=== PATIENT | female | born 1990 | race Two or more races ===

== ENCOUNTER 2024-01-12 20:29 | Observation (INO) | payer MEDICAID, SELFPAY ==
[2024-01-12 20:30] VITALS: BMI 46.8
[2024-01-12 20:49] VITALS: BP 137/89; PULSE 91; RESP 18; TEMP 37.1; O2SAT 97
--- NOTE | 2024-01-12 20:57 | XR_ITS ---
Examination: CT abdomen and pelvis without contrast. Coronal 3-D reconstructions. Sagittal 2-D reconstructions. Date and time of exam: January 12, 2024 1046 hrs. Indications: Lower abdominal pain with nausea beginning 2 days ago CTDI: vol (mGy): 15.01 DLP: (mGycm): 974 Technique: Axial images of the abdomen have been obtained, 3 mm slice thickness Intravenous contrast material has not been administered. Low dose protocols were performed. One or more of the following dose reduction techniques were used; automated exposure control, adjustment of the mA and/or KV according to patient size, use of iterative reconstruction technique. Findings: No focal liver or splenic lesions No gallstones No pancreatic or adrenal mass No renal or ureteral calculi, no hydronephrosis Aorta normal size Appendix is fluid-filled with minimal periappendiceal inflammatory change No bowel obstruction or diverticulitis 15 mm fat-containing umbilical hernia Trace free fluid in the pelvis No pelvic mass Bladder intact Impression: Appendix is fluid-filled with minimal periappendiceal inflammatory change, consider early acute appendicitis, the appearance should be clinically correlated
--- NOTE | 2024-01-12 20:57 | PD.EDRME ---
Rapid Medical Screening Exam RME Arrival date/time: 01/12/24 20:29 33-year-old female with past medical history of section presents emergency department complaining of diffuse abdominal pain that migrates to left lower quadrant with nausea. Chief Complaint: Abdominal Pain Time Seen by Provider: 01/12/24 20:56 Vital signs: Vital Signs Temperature 98.8 F 01/12/24 20:49 Pulse Rate 91 01/12/24 20:49 Respiratory Rate 18 01/12/24 20:49 Blood Pressure 137/89 H 01/12/24 20:49 Pulse Oximetry (%) 97 01/12/24 20:49 Oxygen Delivery Method Room Air 01/12/24 20:49 Vital signs reviewed by provider: Yes
[2024-01-12] MEDS: MG HYD/AL HYD/SIME (Maalox Reg) SUSP 30 ML UDC PO (21:15)
[2024-01-12 21:16] LABS: Collection Type, Urine Clean Catch
[2024-01-12 21:21] LABS: Bilirubin,Urine Negative (Negative); Blood,Urine 1+ (Negative); Clarity,Urine Clear (Clear/Hazy); Color,Urine Lt-Yellow (Lt Yel-Yel); Culture Indicated,Urine Not Indicated; Glucose, Urine Negative (Negative); Ketones,Urine Negative (Negative); Leukocyte Esterase,Urine Negative (Negative); Nitrite,Urine Negative (Negative); Protein,Urine 1+ (Neg - Trace); RBC,Urine 5 /hpf (0-3); Squamous Epithelial Cell,Urine 3 /hpf (0-5); Urobilinogen,Urine Negative mg/dL (0.0-1.0); WBC,Urine < 1 /hpf (0-5)
[2024-01-12 21:22] LABS: Basophils % (Auto) 0 % (0-2.5); Eosinophils # (Auto) 0.2 Thou/mm3 (0.0-0.5); Eosinophils % (Auto) 2 % (0-10); Hematocrit 38.4 % (36.0-46.0); Hemoglobin 12.5 g/dL (12.0-16.0); Immature Granulocytes % (Auto) 1 % (0-0); Immature Granulocytes Auto 0.05 Thou/mm3 (0.00-0.00); Lymphocytes # (Auto) 1.8 Thou/mm3 (1.0-4.8); Lymphocytes % (Auto) 17 % (10-50); Mean Corpuscular HGB Conc 32.6 g/dl (31.0-37.0); Mean Corpuscular Hemoglobin 24.1 pg (25.0-35.0); Mean Corpuscular Volume 74 fL (80-100); Monocytes # (Auto) 0.4 Thou/mm3 (0.0-0.8); Monocytes % (Auto) 4 % (0-12); Neutrophils # (Auto) 7.7 Thou/mm3 (1.8-7.7); Neutrophils % (Auto) 76 % (37-80); Nucleated Red Blood Cell % 0 /100 WBC (0); Platelet Count 309 Thou/mm3 (140-440); RDW Standard Deviation 37.8 fL (36.4-46.3); Red Blood Count 5.19 Miln/mm3 (4.00-5.20); White Blood Count 10.2 Thou/mm3 (3.6-11.0)
[2024-01-12 21:42] LABS: Alanine Aminotransferase 16 U/L (10-49); Albumin, Serum 4.7 gm/dL (3.5-5.0); Albumin/Globulin Ratio 1.6 (1.2-2.2); Alkaline Phosphatase 88 U/L (46-116); Anion Gap 6 (7-16); Aspartate Amino Transferase 12 U/L (0-34); BUN/Creatinine Ratio 17 Ratio (12-20); Bilirubin,Total 0.3 mg/dL (0.3-1.2); Blood Urea Nitrogen 10 mg/dL (9-23); Calcium 10.3 mg/dL (8.3-10.6); Calcium (Corrected) 10.3 mg/dL (8.5-10.1); Carbon Dioxide 29.5 mMol/L (20.0-31.0); Chloride 103 mMol/L (98-107); Creatinine (Component) 0.6 mg/dL (0.6-1.3); Estimated Creatinine Clearance 151.9 mL/min (>60); Glucose 113 mg/dL (74-106); Lipase 45 U/L (12-53); Osmolality,Calculated 275 (275-295); Potassium 3.9 mMol/L (3.4-5.1); Sodium 138 mMol/L (136-145); Total Protein 7.7 gm/dL (5.7-8.2); eGFR > 60 See Note
[2024-01-12 22:11] LABS: HCG,Qualitative Serum Negative
[2024-01-12 23:18] VITALS: BP 141/87; PULSE 85; RESP 18; TEMP 37.1; O2SAT 100
[2024-01-13] VITALS (9 sets, daily range): BP systolic 106–128; BP diastolic 63–91; PULSE 79–90; RESP 16–20; TEMP 36.6–37.2; O2SAT 95–100; BMI 43.5
--- NOTE | 2024-01-13 00:18 | PD.EDABDPN ---
ED Abdominal Pain RME/HPI General Chief Complaint: Abdominal Pain Stated complaint: LOWER ABD PAIN Time seen by provider: 01/12/24 20:56 Arrival date/time: 01/12/24 20:29 Source: patient Mode of arrival: ambulatory Limitations: no limitations RME / HPI RME / HPI narrative: 01/12/24 20:29 33-year-old female with past medical history of section presents emergency department complaining of diffuse abdominal pain that migrates to left lower quadrant with nausea. DR CASEY MAIN ED EVALUATION: 33-year-old female patient complaining of a migratory abdominal pain started may be right lower quadrant migrated to mid abdomen and then to left upper abdomen and across low back. Complains of nausea no vomiting. Normal bowel movement yesterday. No diarrhea or constipation. Related Data Home Medications ?Medication ?Instructions ?Recorded ?Confirmed prenat.vits,zulay,oha-fcpr-nukes 1 tab PO QDAY 07/29/20 10/16/20 Previous Rx's ?Medication ?Instructions ?Recorded hydrocodone 5 mg-acetaminophen 325 1 tab PO Q8H PRN pain #7 tabs 10/18/20 mg tablet ibuprofen 400 mg tablet 400 mg PO Q6H Pain #14 tabs 10/18/20 ibuprofen 600 mg tablet 600 mg PO TID PRN pain #30 tabs 04/18/22 albuterol sulfate 90 mcg/actuation 2 puff inhalation Q6H PRN 04/25/22 aerosol inhaler (Ventolin HFA) shortness of breath or wheezing #8.5 grams oxycodone-acetaminophen 5 mg-325 1 tab PO Q6H PRN pain #10 tabs 01/15/24 mg tablet (Percocet) Allergies Allergy/AdvReac Type Severity Reaction Status Date / Time No Known Allergies Allergy Verified 01/12/24 20:31 Review of Systems Review of Systems Systems Reviewed: All systems reviewed, normal except as documented Past Medical History Past Medical History NEUROLOGIC: Negative Neurological Disorders or Seizures CARDIAC: Negative Cardiac Disorders or Congestive Heart Failure RESPIRATORY: Negative Chronic Obstructive Pulmonary Disease (COPD) GASTROINTESTINAL: Negative Gastrointestinal Disorders, Hepatitis or Colorectal Cancer GENITOURINARY: Negative Genitourinary Disorders or Renal Disease REPRODUCTIVE: Positive Previous Pregnancies (x1); Negative Breast Cancer MUSCULOSKELETAL: Negative Musculoskeletal Disorders or Bone Cancer ENDOCRINE: Positive Endocrine Disorders; Negative Diabetes Mellitus Type 1 or Diabetes Mellitus Type 2 HEMATOLOGIC: Negative Blood Disorders OTHER HISTORY: Positive Hospitalization (x1 delivery); Negative Autoimmune Disease, Down Syndrome, Developmental Delay, Shingles, Falls, Blood Transfusions, Blood Transfusion Reaction, Anesthesia Reactions, Organ Transplant, Chemotherapy, Radiation Therapy, Hyperbaric Therapy, MRSA, VRSA, Vancomycin-Resistant Enterococci, Human Immunodeficiency Virus (HIV), Chicken Pox, Measles, Mumps, Rubella ([place] Measles), Pertussis, Clostridium Difficile, Cancer, Breast Cancer, Cervical Cancer, Colorectal Cancer, Lung Cancer or Ovarian Cancer Family History FAMILY HISTORY: Positive Family Cancer (mat gpa); Negative Family Psychiatric Problems, Family Respiratory Disorders, Family Cardiac Disorders, Family Gastrointestinal Problems, Family Surgery or Family Anesthesia Reaction Surgical History SURGICAL: Negative Section or Organ Transplant Social History SMOKING STATUS: Never smoker ED Exam Narrative Physical exam: GENERAL APPEARANCE: alert and oriented x 4, well-developed, well-nourished, no acute distress VITALS: All vitals were reviewed and the pulse ox is % on room air, which is normal according to my interpretation. HEENT: Normocephalic, atraumatic; pupils equal, round, reactive to light; EOMI; mucous membranes pink, moist; oropharynx clear NECK: Supple LUNGS: CTABL; no wheezes, no rales, no rhonchi HEART: Regular rate, regular rhythm; normal S1, S2; no murmurs ABDOMEN: Initial examination: Obese, active bowel sounds, mild diffuse subjective tenderness, no rebound no guarding. Reexamination: Obese, active bowel sounds, right lower quadrant tenderness with involuntary guarding BACK: no CVA tenderness EXTREMITIES: atraumatic; no edema NEUROLOGIC: awake; alert and oriented x4; cranial nerves II-XII grossly intact; no focal sensory or motor deficits PSYCHIATRIC: appropriate mood and affect SKIN: warm, dry, normal color; no rashes General Limitations: Present no limitations Course Course Course Narrative: Initial examination: Obese, active bowel sounds, mild diffuse subjective tenderness, no rebound no guarding. Treated for abdominal pain. Symptoms improved. Reexamination: Obese, active bowel sounds, right lower quadrant tenderness with involuntary guarding Discussed with Dr. Jarquin for consult Dx: Acute appendicitis Quality Measures none Orders Category Date Time Status Bedside COVID-19 Antigen Test NOW Care 01/13/24 02:15 Completed COVID-19 Screening Questionnaire NOW Care 01/13/24 01:51 Completed Decision to Admit X1 Care 01/13/24 01:51 Completed NPO NOW Care 01/13/24 01:[address] abdomen pelvis wo con Stat Exams 01/12/24 20:57 Completed CBC Stat Lab 01/12/24 21:12 Completed CMP [Comprehensive Metabolic Panel] Stat Lab 01/12/24 21:12 Completed HCG,Qualitative Serum Stat Lab 01/12/24 21:12 Completed Lipase Stat Lab 01/12/24 21:12 Completed Urinalysis, C/S if Indicated Stat Lab 01/12/24 21:03 Completed Acetaminophen Tab [Tylenol Tab] Med 01/13/24 01:52 Discontinued 650 mg PO Q6HR PRN HYDROcodone*/APAP 5/325 [[place] 5/325] Med 01/13/24 00:10 Discontinued 1 tab PO X1 ONE Ketorolac Inj [Toradol Inj] Med 01/13/24 01:53 Discontinued 15 mg IVP Q6HR PRN Ketorolac Inj [Toradol Inj] Med 01/13/24 00:10 Discontinued 30 mg IM X1 ONE Morphine Inj [Morphine Sulf Inj] Med 01/13/24 01:54 Discontinued 4 mg IVP Q4HR PRN Ondansetron Inj [Zofran Inj] Med 01/13/24 01:57 Discontinued 4 mg IV Q6HR PRN Ondansetron Odt [Zofran Odt] Med 01/13/24 00:10 Discontinued 4 mg PO X1 ONE Piper/Tazo Inj [Zosyn Inj] 3.375 gm Med 01/13/24 01:55 Discontinued Sodium Chloride 0.9% (P) [Ns 0.9% (P)] 50 ml IV X1 Sodium Chloride 0.9% 1000 ml [Ns] 1,000 ml Med 01/13/24 02:00 Discontinued IV 125 mls/hr mg Hyd/Al Hyd/Arnulfo Susp [Maalox Susp] Med 01/12/24 20:57 Discontinued 30 ml PO X1 ONE Vital Signs Vital signs: Vital Signs Temperature 98.8 F 01/12/24 20:49 Pulse Rate 91 01/12/24 20:49 Respiratory Rate 18 01/12/24 20:49 Blood Pressure 137/89 H 01/12/24 20:49 Pulse Oximetry (%) 97 01/12/24 20:49 Oxygen Delivery Method Room Air 01/12/24 20:49 Abdominal Pain MDM MDM Narrative MDM Narrative:: Scribe Attestation: I, Adriannerogelio Stephania, am scribing for and in the presence of Dr. Casey. Provider Notation: Although this document has been carefully reviewed, there may still be some phonetic and other typographical errors. These errors are purely grammatical due to imperfections in the software program and should not be construed in any way to compromise the substance of the patient's medical care during this visit. Patient data External records reviewed:: [facility] previous records Clinical information provided by:: patient Social determinants that could affect healthcare access:: none Patient has the following chronic illnesses:: n/a How is presenting disease/condition affected by chronic disease/condition?: no chronic disease Evaluation data The following diagnostics were reviewed and interpreted by me:: lab results and radiology exam(s) Lab and/or radiology exams considered but not ordered:: n/a Interpretation Summary: I personally reviewed the radiology data and agree with the radiologist's interpretation. Examination: CT abdomen and pelvis without contrast. Coronal 3-D reconstructions. Sagittal 2-D reconstructions. Date and time of exam: January 12, 2024 1046 hrs. Indications: Lower abdominal pain with nausea beginning 2 days ago CTDI: vol (mGy): 15.01 DLP: (mGycm): 974 Technique: Axial images of the abdomen have been obtained, 3 mm slice thickness Intravenous contrast material has not been administered. Low dose protocols were performed. One or more of the following dose reduction techniques were used; automated exposure control, adjustment of the mA and/or KV according to patient size, use of iterative reconstruction technique. Findings: No focal liver or splenic lesions No gallstones No pancreatic or adrenal mass No renal or ureteral calculi, no hydronephrosis Aorta normal size Appendix is fluid-filled with minimal periappendiceal inflammatory change No bowel obstruction or diverticulitis 15 mm fat-containing umbilical hernia Trace free fluid in the pelvis No pelvic mass Bladder intact Impression: Appendix is fluid-filled with minimal periappendiceal inflammatory change, consider early acute appendicitis, the appearance should be clinically correlated Dictated By: Job Abdullahi MD Medications / Prescriptions Medications or Prescriptions considered but not ordered:: n/a Medication administrations:: Medication Administration History Discontinued Medications Acetaminophen (Acetaminophen 325 Mg Tablet) 650 mg PO Q6HR PRN PRN Reason: PAIN SCALE 1-3 (mild Stop: 02/12/24 01:51 Last Admin: 01/14/24 08:05 Dose: 650 mg Documented By: SA Hydrocodone Bitart/Acetaminophen (Hydrocodone/Apap 5/325 Tablet) 1 tab PO X1 ONE Stop: 01/13/24 00:11 Last Admin: 01/13/24 00:38 Dose: 1 tab Documented By: CB Hydrocodone Bitart/Acetaminophen (Hydrocodone/Apap 5/325 Tablet) 1 tab PO Q6H PRN; Protocol PRN Reason: PAIN SCALE 7-10 (Severe Stop: 01/18/24 08:59 Last Admin: 01/15/24 05:46 Dose: 1 tab Documented By: Admin: 01/14/24 18:42 Dose: 1 tab Documented By: SN Al Hydrox/Mg Hydrox/Simethicone (Mg Hyd/Al Hyd/Arnulfo (Maalox Reg) Susp 30 Ml Udc) 30 ml PO X1 ONE Stop: 01/12/24 20:58 Last Admin: 01/12/24 21:15 Dose: 30 ml Documented By: CVL Albuterol (Albuterol Rt 2.5 Mg/3 Ml Nebu) 2.5 mg INH X1 ONE Stop: 01/14/24 14:41 Albuterol (Albuterol Rt 2.5 Mg/3 Ml Nebu) 2.5 mg INH X1 ONE Stop: 01/14/24 14:42 Last Admin: 01/14/24 14:46 Dose: 2.5 mg Documented By: DI Bupivacaine HCl (Bupivacaine Mpf 0.5% 30 Ml Vial) Confirm Administered Dose 30 ml .ROUTE .STK-MED ONE Stop: 01/14/24 11:34 Fentanyl Citrate (Fentanyl Cit Inj 50 Mcg/Ml Amp 2ml) Confirm Administered Dose 100 mcg .ROUTE .STK-MED ONE Stop: 01/14/24 11:53 Fentanyl Citrate (Fentanyl Cit Inj 50 Mcg/Ml Amp 2ml) Confirm Administered Dose 100 mcg .ROUTE .STK-MED ONE Stop: 01/14/24 11:53 Glycopyrrolate (Glycopyrrolate Inj 0.2 Mg/Ml Vial 5 Ml) Confirm Administered Dose 1 mg .ROUTE .STK-MED ONE Stop: 01/14/24 11:54 Hydromorphone HCl (Hydromorphone Inj 2 Mg/Ml Vial) Confirm Administered Dose 2 mg .ROUTE .STK-MED ONE Stop: 01/14/24 11:53 Hydromorphone HCl (Hydromorphone Inj 2 Mg/Ml Vial) 0.4 mg IVP Q15MIN PRN PRN Reason: PAIN Stop: 01/14/24 15:57 Piperacillin Sod/Tazobactam (Sod 3.375 gm/ Sodium Chloride) 50 mls @ 100 mls/hr IV X1 ONE Stop: 01/13/24 02:24 Last Infusion: 01/13/24 05:12 Dose: Infused Documented By: Admin: 01/13/24 02:06 Dose: 100 mls/hr Documented By: POLLO Sodium Chloride (Ns) 1,000 mls @ 125 mls/hr IV .Q8H ONE Stop: 01/13/24 09:59 Last Infusion: 01/13/24 10:20 Dose: Infused Documented By: JORGE LUIS Admin: 01/13/24 02:05 Dose: 125 mls/hr Documented By: POLLO Sodium Chloride (Ns) 1,000 mls @ 125 mls/hr IV .Q8H GIUSEPPE Stop: 01/14/24 15:44 Last Admin: 01/14/24 08:04 Dose: 125 mls/hr Documented By: Infusion: 01/14/24 08:04 Dose: Infused Documented By: Admin: 01/14/24 00:11 Dose: 125 mls/hr Documented By: Infusion: 01/14/24 00:11 Dose: Infused Documented By: Admin: 01/13/24 16:11 Dose: 125 mls/hr Documented By: JORGE LUIS Sodium Chloride (Ns) 1,000 mls @ 125 mls/hr IV .Q8H ONE Stop: 01/14/24 08:04 Last Admin: 01/14/24 00:12 Dose: Not Given Documented By: MORIAH Non-Admin Reason: Duplicate Medication on eMAR Piperacillin/Tazobactam/Dextrose (Zosyn) 3.375 gm in 50 mls @ 100 mls/hr IV Q8HR [facility] Stop: 01/21/24 10:08 Piperacillin Sod/Tazobactam (Sod 3.375 gm/ Sodium Chloride) 100 mls @ 200 mls/hr IV X1 ONE Stop: 01/14/24 11:29 Last Admin: 01/14/24 10:56 Dose: 200 mls/hr Documented By: Piperacillin Sod/Tazobactam (Sod 3.375 gm/ Sodium Chloride) 100 mls @ 25 mls/hr IV Q8HR GIUSEPPE; Protocol Stop: 01/21/24 10:08 Last Admin: 01/15/24 05:47 Dose: 25 mls/hr Documented By: JOHN PAUL Infusion: 01/15/24 01:21 Dose: Infused Documented By: JOHN PAUL Admin: 01/14/24 21:21 Dose: 25 mls/hr Documented By: JOHN PAUL Influenza Virus Vaccine Quadrival (Influenza Virus Quadrivalent 0.5 Ml Syringe) 0.5 ml IMi .ONCE ONE Stop: 01/13/24 20:10 Ketorolac Tromethamine (Ketorolac Inj 30 Mg/Ml Vial) 30 mg IM X1 ONE Stop: 01/13/24 00:11 Last Admin: 01/13/24 00:39 Dose: 30 mg Documented By: ARVIND Ketorolac Tromethamine (Ketorolac Inj 30 Mg/Ml Vial) 15 mg IVP Q6HR PRN PRN Reason: PAIN SCALE 4-10(Mod-Sev Stop: 01/18/24 01:52 Last Admin: 01/14/24 16:06 Dose: 15 mg Documented By: Admin: 01/13/24 08:28 Dose: 15 mg Documented By: JORGE LUIS Ketorolac Tromethamine (Ketorolac Inj 30 Mg/Ml Vial) Confirm Administered Dose 30 mg .ROUTE .STK-MED ONE Stop: 01/14/24 13:17 Ketorolac Tromethamine (Ketorolac Inj 30 Mg/Ml Vial) Confirm Administered Dose 30 mg .ROUTE .STK-MED ONE Stop: 01/14/24 13:17 Midazolam HCl (Midazolam Inj 1 Mg/Ml Vial 2 Ml) Confirm Administered Dose 2 mg .ROUTE .STK-MED ONE Stop: 01/14/24 11:53 Morphine Sulfate (Morphine Sulf Inj 4 Mg/Ml Vial) 4 mg IVP Q4HR PRN PRN Reason: PAIN SCALE 7-10 (Severe Stop: 01/18/24 01:53 Ondansetron HCl (Ondansetron Odt 4 Mg Tabrap) 4 mg PO X1 ONE; Protocol Stop: 01/13/24 00:11 Last Admin: 01/13/24 00:39 Dose: 4 mg Documented By: ARVIND Ondansetron HCl (Ondansetron Inj 2 Mg/Ml Inj 2 Ml) 4 mg IV Q6HR PRN; Protocol PRN Reason: NAUSEA OR VOMITING Stop: 02/12/24 01:56 Last Admin: 01/14/24 18:19 Dose: 4 mg Documented By: Admin: 01/14/24 09:46 Dose: 4 mg Documented By: Admin: 01/13/24 10:06 Dose: 4 mg Documented By: JORGE LUIS Pantoprazole Sodium (Pantoprazole Inj 40 Mg Vial) 40 mg IVP X1 ONE Stop: 01/14/24 09:41 Last Admin: 01/14/24 09:45 Dose: 40 mg Documented By: Propofol (Propofol Inj 10 Mg/Ml Vial 20 Ml) Confirm Administered Dose 200 mg IV .STK-MED ONE Stop: 01/14/24 11:53 Propofol (Propofol Inj 10 Mg/Ml Vial 20 Ml) Confirm Administered Dose 200 mg IV .STK-MED ONE Stop: 01/14/24 12:03 Rocuronium [place] (Rocuronium Inj 10 Mg/Ml Vial 10 Ml) Confirm Administered Dose 100 mg .ROUTE .STK-MED ONE Stop: 01/14/24 11:54 Sugammadex Sodium (Sugammadex Inj 100 Mg/Ml 2ml Vial) Confirm Administered Dose 200 mg .ROUTE .STK-MED ONE Stop: 01/14/24 13:20 Sugammadex Sodium (Sugammadex Inj 100 Mg/Ml 2ml Vial) Confirm Administered Dose 200 mg .ROUTE .STK-MED ONE Stop: 01/14/24 13:25 as above Consultations Consultation(s) initiated? (list below): Yes Consultation #1 (Physician, Specialty, Details): Dr. Jarquin was made aware of the patient?s HPI, PMHx, lab and/or radiology results. Dx: Acute appendicitis. Discussed treatment plan. Will consult an admission to the hospitalist. Time: 01:40 Consultation #2 (Physician, Specialty, Details): Hospitalist made aware of the patient?s HPI, PMHx, lab and/or radiology results. Treatment plan was discussed. Will admit for further evaluation and management. Accepts patient for admission. Time: 02:38 Diagnosis Differential diagnosis abdominal pain: abdominal pain, acute appendicitis, diverticulitis, gastroenteritis and pancreatitis Most likely diagnosis given after review of the tests above:: Acute appendicitis Admission Indicated Admission indicated?: indicated Admission Request Was there a request for admission?: Yes Admission Attestation Admission request attestation: Discussed case with [] from Hospitalist service regarding admission. Discussed patients ED course, exam findings, labs, and radiology results. The Hospitalist [agrees,declines] to accept the patient for admission. Disposition Plan Disposition Plan: Admit Critical Care Time Critical Care Time Critical Care Time: Yes Total Critical Care Time (min.): 31 Attestation: The high probability of sudden, clinically significant deterioration in the patient?s condition required the highest level of my preparedness to intervene urgently. The services I provided to this patient were to treat and/or prevent clinically significant deterioration. Services included the following: chart data review, reviewing nursing notes and/or old charts, documentation time, aws consultant collaboration regarding findings and treatment options, medication orders and management, direct patient care, vital sign assessments and ordering, interpreting and reviewing diagnostic studies and lab tests. Aggregate critical care time includes only time during which I was engaged in work directly related to the patient?s care, as described above, whether at bedside or elsewhere in the Emergency Department. It did not include time spent performing other reported procedures or the services of residents, students, nurses or physician assistants. Discharge Plan Plan Patient Disposition: Admit Acute Care w/in Hospital Disposition Comment: Dr. Jarquin Problem List Clinical Impression: Acute appendicitis Patient/Caregiver Discharge Instructions Other Activity Instructions:: Avoid lifting objects >10lb for 6 weeks You may resume showering tomorrow 01/15 Otherwise keep incisions clean and dry Your stitches will not need to be removed If you develop worsening pain, nausea/vomiting, fever or jaundice please seek care in ER
[2024-01-13] MEDS: HYDROcodone/APAP 5/325 TABLET 1 TAB PO (00:38)
[2024-01-13] MEDS: ONDANSETRON ODT 4 MG TABRAP PO (00:39)
[2024-01-13] MEDS: KETOROLAC INJ 30 MG/ML VIAL IM (00:39)
[2024-01-13] MEDS: SODIUM CHLORIDE 0.9% 1000 ML 1,000 ML 125 ML IV ×2 (02:05→16:11)
[2024-01-13] MEDS: PIPER/TAZO INJ 3.375 GM in SODIUM CHLORIDE 0.9% (P) 50 ML IV (02:06)
--- NOTE | 2024-01-13 08:20 | PC.NURSE ---
PATIENT RESTING IN BED, RESP EVEN UNLABORED. C/O MILD PAIN TO LOWER RT ABD WORSE WHEN MOVING AND COUGHING. STATES SHE DOESN'T NECESSARILY FEEL PAIN ITS MORE LIKE FULLNESS. PT WALKS WITH NO DIFFICULTY. NO DISTRESS NOTED, CURRENTLY AWAITING FOR DR MURRIETA TO CONSULT
[2024-01-13] MEDS: KETOROLAC INJ 30 MG/ML VIAL 15 MG IVP (08:28)
--- NOTE | 2024-01-13 08:30 | PC.NURSE ---
DR MURRIETA IN TO EVALUATE PT. STATES PT IS OK TO EAT, SHE DOES NOT FEEL PT HAS AN APPY BUT WILL STILL CONTINUE TO MONITOR PT.
--- NOTE | 2024-01-13 10:00 | PC.NURSE ---
DR. MURRIETA OK'D PT TO EAT, FOOD TRAY CAME. PT DID NOT TOLERATE IT WELL. BECAME NAUSEATED. WILL GIVE NAUSEA MEDICATION
[2024-01-13] MEDS: ONDANSETRON INJ 2 MG/ML INJ 2 ML 4 MG IV (10:06)
--- NOTE | 2024-01-13 12:01 | PC.NURSE ---
PATIENT RESTING IN BED, RESP EVEN UNLABORED. STATES HER NAUSEA IS BETTER AT THIS TIME.
--- NOTE | 2024-01-13 12:54 | PD.SURHP ---
HPI Date of Admission 01/13/24 09:00 HPI 33F presenting with abdominal pain. Pt reports pain began two nights ago and was diffuse but most prominent on the left, associated with nausea but no vomiting. She denies any history of similar pain or any other associated symptoms. Pt underwent CT showing fluid filled appendix with minimal periappendiceal inflammation. She feels better this morning with less pain and no nausea PMH: Obesity PShx: Csection Meds: None Allergies: NKDA Social hx: Nonsmoker Review of Systems Review of Systems ROS Unobtainable: All systems reviewed & no additional complaints except as documented Meds Home Medications and Allergies Home Medications ?Medication ?Instructions ?Recorded ?Confirmed ?Type prenat.vits,zulay,vpw-paus-utvis 1 tab PO QDAY 07/29/20 10/16/20 History Allergies Allergy/AdvReac Type Severity Reaction Status Date / Time No Known Allergies Allergy Verified 01/12/24 20:31 Exam Vital Signs Temp Pulse Resp BP Pulse Ox O2 Del Method 98.2 F 87 20 106/79 100 Room Air 01/13/24 08:16 01/13/24 08:16 01/13/24 08:16 01/13/24 08:16 01/13/24 08:16 01/13/24 08:16 Constitutional Constitutional: no acute distress Routine Respiratory Exam Respiratory: Present no resp distress Routine Abdominal Exam Abdominal: Present soft; Absent tenderness or distended Results Results: Laboratory Laboratory results: results reviewed Results: Imaging CT scan - abdomen: report reviewed and image reviewed Assessment & Plan Plan 33F presenting with abdominal pain and nausea, with CT suggesting possible appendicitis however pt has an coleman score of 2 making appendicitis unlikely. I offered the option of discharge home from ER vs observation, pt is agreeable to observation for now to monitor pain and tolerance of diet Quality Measures Quality Measures none
--- NOTE | 2024-01-13 13:49 | PC.CC ---
Pt Annmarie Beard is a 33 yr old female, admitted to hospitalist services for abd pain. ERP PM CC met with pt at bedside to complete initial assessment. At time of encounter pt is noted to be alert and oriented to person, place and situation. Pt expressed understanding admission order and is in agreement with treatment plan. Pt able to confirm all demographic information. Pt is from home [address] [place] [address] where she lives with her life partner Juan C Cordero [phone]. Pt identifies Mr. Cordero as surrogate DM. At baseline pt reports being independent with ambulation and with her ADLs. Pt reports that she does not require supplemental O2 at home. Pt reports she is diabetic on Ozempic. Pt is not on dialysis. Pt is followed by [facility] on [address]. At time of D/c pt reports she will return home, providing her own transportation.
--- NOTE | 2024-01-13 16:13 | PC.NURSE ---
DR MURRIETA IN TO EVALUATE PT. PT STILL C/O RT ABD BURNING/PAIN WITH MOVEMENT. PT ATE JELLO AND PUDDING BUT STATES IT MAKE HER STOMACH HURT. DR MURRIETA AWARE STATES IF PT IS STILL IN PAIN SHE MAY TAKE HER TO SURGERY TOMORROW
[2024-01-14] VITALS (22 sets, daily range): BP systolic 95–162; BP diastolic 53–104; PULSE 60–103; RESP 12–24; TEMP 36.2–36.8; O2SAT 94–100
[2024-01-14] MEDS: SODIUM CHLORIDE 0.9% 1000 ML 1,000 ML 125 ML IV ×2 (00:11→08:04)
[2024-01-14] MEDS: ACETAMINOPHEN 325 MG TABLET 650 MG PO (08:05)
[2024-01-14] MEDS: PANTOPRAZOLE INJ 40 MG VIAL IVP (09:45)
[2024-01-14] MEDS: ONDANSETRON INJ 2 MG/ML INJ 2 ML 4 MG IV ×2 (09:46→18:19)
--- NOTE | 2024-01-14 10:10 | PD.SURPROG ---
Documentation for date of: 01/14/24 Subjective Subjective Brief History: 33F presenting with abdominal pain. Pt reports pain began two nights ago and was diffuse but most prominent on the left, associated with nausea but no vomiting. She denies any history of similar pain or any other associated symptoms. Pt underwent CT showing fluid filled appendix with minimal periappendiceal inflammation. She feels better this morning with less pain and no nausea PMH: Obesity PShx: Csection Meds: None Allergies: NKDA Social hx: Nonsmoker Narrative: Pt reporting pain in RLQ, she prefers not to take pain meds but feels uncomfortable and has had persistent nausea and anorexia. Remains afebrile, has had three BMs with no improvement in symptoms Exam Vital Signs Temp Pulse Resp BP Pulse Ox O2 Del Method 98.3 F 85 18 97/65 97 Room Air 01/14/24 09:34 01/14/24 07:24 01/14/24 07:24 01/14/24 07:24 01/14/24 07:24 01/14/24 07:24 Constitutional Constitutional: no acute distress Routine Respiratory Exam Respiratory: Present no resp distress Routine Abdominal Exam Abdominal: Present soft, tenderness (mild RLQ tenderness) and rebound; Absent distended or guarding Results Results: Laboratory Laboratory results: results reviewed Results: Imaging CT scan - abdomen: report reviewed and image reviewed Assessment & Plan Plan 33F presenting with abdominal pain and nausea, initially with Benoit score 2 but now increased to 5. I explained options of monitoring vs surgery; I explained risks of both approaches, including worsening symptoms if monitored vs negative appendectomy, bleeding, infection, need for conversion to open, inability to remove the appendix and hernia. Pt expressed understanding and would like to proceed with surgery
[2024-01-14] MEDS: PIPER/TAZO INJ 3.375 GM in SODIUM CHLORIDE 0.9% (P) 100 ML IV ×2 (10:56→21:21)
--- NOTE | 2024-01-14 13:43 | SUR.PHASEI ---
pt received from OR in recovery bay 1. pt asleep but responds to voice, breathing unlabored on oxymask 6l, nasal airway in place. v/s stable. pt dressing dermabond x3 to abd cdi. report received from Ced PRESSLEY and Devan LIN.
--- NOTE | 2024-01-14 14:24 | PD.SUROPNT ---
Date of Procedure 01/14/24 Pre Op Diagnosis Acute appendicitis Post Op Diagnosis Same Procedure Laparoscopic appendectomy Findings Mildly inflamed appendix Procedure Description After discussion of risks and benefits, patient was brought to the operating room, SCDs were placed and general anesthesia was induced. She had already received preoperative antibiotics and urinated immediately prior to entering the operating room. She was prepped and draped in the usual sterile fashion. After timeout an infraumbilical incision was made and the tissues were elevated. A Veress needle was placed but proper positioning was not confirmed likely due to the thickness of the abdominal wall. I then placed a longer Veress needle and proper positioning was confirmed with a drop test. At that point the abdomen was insufflated to 15 mmHg and the Veress needle was exchanged for a 5 mm camera using a Visiport technique. There were no signs of injury from the point of entry. 2 additional 5 mm ports were placed in left lower quadrant and suprapubic region, and I attempted to upsize the infraumbilical port to a 12 mm but it was not well-visualized due to intra-abdominal adhesions so for safe entry I opted to make a 12 mm incision just to the right of the umbilicus. Patient was placed in Trendelenburg with left side down. The appendix was identified by tracing attending of the colon was noted to be slightly inflamed and retrocecal. A window was made between the base of the appendix and the mesoappendix and the base of the appendix was transected using a 45mm blue load. The mesoappendix was was transected with the harmonic scalpel. The area was gently irrigated and there were no signs of bleeding. The specimen was removed in an Endo Catch bag via the right. Umbilical port and the periumbilical fascia was closed with a 0 Vicryl suture using a Irwin-Florencia. Pneumoperitoneum was released while remaining ports were removed under direct vision. Incisions were irrigated and infiltrated with half percent Marcaine for a total of 25 cc. Patient was extubated and brought to PACU in stable condition Pathology / specimen Other (Appendix) Estimated Blood Loss 25 Surgeon Neema Jarquin MD Surgical Staff Operation Date: 01/14/24 11:45 Case Staff ADMISSION DISCHARGE RN: Willis Barrientos RN First Assistant: Fang Santamaria RNdairy manager: Christopher Morrow
[2024-01-14] MEDS: ALBUTEROL RT 2.5 MG/3 ML NEBU INH (14:46)
--- NOTE | 2024-01-14 15:35 | SUR.PHASEI ---
pt asleep but responds to voice, breathing unlabored on 3l nc. v/s stable. pt dressing to abd dermabond x3 cdi. report called to Micheal1. pt will be transferred.
[2024-01-14] MEDS: KETOROLAC INJ 30 MG/ML VIAL 15 MG IVP (16:06)
[2024-01-14] MEDS: HYDROcodone/APAP 5/325 TABLET 1 TAB PO (18:42)
[2024-01-15] VITALS: BP 99/53; PULSE 82; RESP 18; TEMP 36.7; O2SAT 98
--- NOTE | 2024-01-15 01:33 | PC.NURSE ---
Checked on pt, asked if she needs med for pain but stated I'm doing ok .
[2024-01-15 04:00] VITALS: BP 94/61; PULSE 90; RESP 16; TEMP 36.8; O2SAT 95
[2024-01-15] MEDS: HYDROcodone/APAP 5/325 TABLET 1 TAB PO (05:46)
[2024-01-15] MEDS: PIPER/TAZO INJ 3.375 GM in SODIUM CHLORIDE 0.9% (P) 100 ML IV (05:47)
[2024-01-15 07:52] VITALS: BP 107/72; PULSE 89; RESP 18; TEMP 36.5; O2SAT 96
--- NOTE | 2024-01-15 11:11 | ESDS_ITS ---
Planned Discharge Date 01/15/24 DS: Providers Provider Date of admission: 01/13/24 09:00 Primary care physician: German Montano MD Admitting Provider: Neema Jarquin MD Attending Provider on Admission: Neema Jarquin MD Attending Provider on DC: Neema Jarquin MD Discharging Provider: Neema Jarquin MD Diagnosis Discharge Diagnosis (1) Acute appendicitis: Status: Acute Problem List Completed Was Problem List Reviewed/Reconciled?: Yes Hospital Course Pt initially presented with diffuse abdominal pain, findings not consistent with acute appendicitis however symptoms progressed prompting laparoscopic a ppendectomy 01/13. Pt has recovered well postoperatively and is now appropriate for discharge home Exam Vital Signs Temp Pulse Resp BP Pulse Ox O2 Del Method O2 Flow Rate 97.7 F 89 18 107/72 96 Room Air 3 01/15/24 07:52 01/15/24 07:52 01/15/24 07:52 01/15/24 07:52 01/15/24 07:52 01/15/24 07:52 01/15/24 07:52 Constitutional Constitutional: no acute distress Routine Respiratory Exam Respiratory: Present no resp distress Routine Abdominal Exam Abdominal: Present soft; Absent normoactive bowel sounds or tenderness Discharge Plan Plan Patient Disposition: HOME (Self Care) Disposition Comment: Dr. Jarquin Prescriptions/Referrals Prescriptions/Med Rec: New oxycodone-acetaminophen [Percocet] 5-325 mg tablet 1 tab PO Q6H MDD 6 tabs PRN (Reason: pain) Qty: 10 0RF No Action Vitamin Tablet 1 tab PO QDAY hydrocodone-acetaminophen 5-325 mg tablet 1 tab PO Q8H MDD 4 PRN (Reason: pain) Qty: 7 0RF ibuprofen 400 mg tablet 400 mg PO Q6H MDD 6 Qty: 14 0RF ibuprofen 600 mg tablet 600 mg PO TID PRN (Reason: pain) Qty: 30 0RF albuterol sulfate [Ventolin HFA] 90 mcg/actuation HFA aerosol inhaler 2 puff inhalation Q6H PRN (Reason: shortness of breath or wheezing) Qty: 8.5 0RF Referrals: German Montano MD [Primary Care Provider] - Neema Jarquin MD [Physician] - (You will receive a phone call to confirm a follow-up appt with me in 2 weeks) Patient/Caregiver Discharge Instructions Other Discharge Activity Instructions:: Avoid lifting objects >10lb for 6 weeks You may resume showering tomorrow 01/15 Otherwise keep incisions clean and dry Your stitches will not need to be removed If you develop worsening pain, nausea/vomiting, fever or jaundice please seek care in ER Education Materials: After an Appendectomy, Preventing Surgical Site Infections Print Language: German Stand Alone Forms: Janet Award Info., Patient Portal Info Letter, Work/Release Restrictions Discharge Order Discharge Orders: Discharge (Routine); Ordered 01/15/24 Ordered By: Neema Jarquin Results Results: Laboratory Laboratory results: results reviewed Results: Imaging CT scan - abdomen: report reviewed and image reviewed Procedures Procedure Date 01/14/24 Procedures Laparoscopic appendectomy
--- NOTE | 2024-01-15 11:54 | PC.CC ---
Received SS referral for patient unable to afford Ozempic. Met w/ patient and spouse in room. Patient states that the referral was a miscommunication and that she has no barriers to obtaining Ozempic. The issue at hand is the side effects of the medication that she is addressing adequately and at one time her provider attempted an alternative and which the alternative was not covered. No needs at this time.
[2024-01-15 12:00] VITALS: BP 123/79; PULSE 94; RESP 18; TEMP 36.6; O2SAT 97
== END 2024-01-15 13:21 | disposition home or self-care (01) ==
LOC: SERX 01-13 01:50 → SERHOLD 01-13 09:21 → S3SX 01-13 19:51
PROVIDERS: Admitting Provider Surgery; Emergency Provider Emergency Medicine; PCP Family Medicine; Visit Provider Surgery
PROC: 0DTJ4ZZ Resection of Appendix, Percutaneous Endoscopic Approach (ICD-10-PCS; CPT 44970; principal; 2024-01-14 11:30)
DX: K35.80 Unspecified acute appendicitis (principal); E66.9 Obesity, unspecified; Z68.41 Body mass index [BMI] 40.0-44.9, adult
CPT/HCPCS: 47562; 36415; 74176; 80053; 81001; 83690; 84703; 85025; 87811; 96361; 96365; 96366; 96372; 96375; 99291; A4217; A4649; G0378; J1885; J2250; J2405; J2470; J2543; J2704; J3010; J3490; J7030; J7050; Q0162; A9270; J1596

== ENCOUNTER 2024-01-30 14:04 | Outpatient (AMB) | payer MEDICAID, SELFPAY ==
[2024-01-30 14:14] VITALS: BP 113/78; PULSE 96; RESP 16; TEMP 36.4; O2SAT 97; BMI 43.9
--- NOTE | 2024-01-30 14:14 | PD.GSCLVISIT ---
Vital Signs - [facility] 01/30/24 14:14 Height 1.57 m Height Method Stated Weight 108.862 kg Weight Measurement Method Standing Scale BMI 43.9 BP 113/78 Blood Pressure Source Automatic Cuff Blood Pressure Location Right Upper Arm Position Sitting Respiration 16 Pulse 96 Pulse Source Monitor Temp 97.5 F Temp Source Temporal Artery Scan Pulse Oximetry (%) 97 Oxygen Delivery Method Room Air Med/Allergies Allergies & Medications Allergies No Known Allergies Allergy (Verified 01/30/24 14:15) Medication Reconciliation albuterol sulfate 90 mcg/actuation aerosol inhaler (Ventolin HFA) 2 puff inhalation Q6H PRN shortness of breath or wheezing #8.5 grams 04/25/22 [Rx Confirmed 01/30/24] semaglutide 1 mg/dose (4 mg/3 mL) subcutaneous pen injector (Ozempic) 1 mg subcut QWEEK 01/30/24 [History Confirmed 01/30/24] MA Intake Visit Data Collection New Patient or Established: Established Patient (seen at [facility] within 3 years) Seen by Clinical Staff ONLY (RN/MA): No Reason for Visit:: post op appendectomy Pain Present Currently: Yes Pain Location: Abdomen Pain scale:: 6 Pain Scale Used: Payton-Puentes/Numerical Chick Room Supervisor Required: No PCP or OBGYN visit in last 3 months: Yes Hx Now: No Date of Last Menstrual Period: 01/25/24 Do You Feel Safe at Home: Yes Smoking Status Smoking Status: Former smoker Immunization / Flu Flu Vaccine in the Last 12 Months: No Flu Vaccine Exclusion Criteria: Refused by Patient Past Medical History Past Medical History NEUROLOGIC: Negative Neurological Disorders or Seizures CARDIAC: Negative Cardiac Disorders or Congestive Heart Failure RESPIRATORY: Negative Chronic Obstructive Pulmonary Disease (COPD) GASTROINTESTINAL: Negative Gastrointestinal Disorders, Hepatitis or Colorectal Cancer GENITOURINARY: Negative Genitourinary Disorders or Renal Disease REPRODUCTIVE: Positive Previous Pregnancies; Negative Breast Cancer MUSCULOSKELETAL: Negative Bone Cancer ENDOCRINE: Positive Endocrine Disorders and Diabetes Mellitus Type 2 (Patient on ozempic.); Negative Diabetes Mellitus Type 1 HEMATOLOGIC: Negative Blood Disorders OTHER HISTORY: Positive Hospitalization; Negative Down Syndrome, Developmental Delay, Shingles, Falls, Blood Transfusions, Blood Transfusion Reaction, Anesthesia Reactions, Organ Transplant, Chemotherapy, Radiation Therapy, Hyperbaric Therapy, MRSA, VRSA, Vancomycin-Resistant Enterococci, Human Immunodeficiency Virus (HIV), Chicken Pox, Measles, Mumps, Rubella (Taiwanese Measles), Pertussis, Clostridium Difficile, Cancer, Breast Cancer, Cervical Cancer, Colorectal Cancer, Lung Cancer or Ovarian Cancer Family History FAMILY HISTORY: Positive Family Cancer; Negative Family Psychiatric Problems, Family Respiratory Disorders, Family Cardiac Disorders, Family Gastrointestinal Problems, Family Surgery or Family Anesthesia Reaction Surgical History SURGICAL: Negative Section or Organ Transplant Social History SMOKING STATUS: Smoking status: Former smoker ALCOHOL: Alcohol Intake: Never ALCOHOL FREQUENCY: Alcohol Intake Frequency: holidays/special occasions only HOUSING: Housing: House LIVES WITH: Lives With: Children and Significant Other HPI HPI Narrative 33F s/p lap appendectomy 01/14/24 here for planned follow up. Pt reports feeling well overall, she has some pain superior to the R most lateral incision but is not taking any medications, denies any nausea or fever, is tolerating diet and having regular BM ROS Review of Systems Systems Reviewed: All systems reviewed, normal except as documented Objective/Exam General General Appearance: alert, cooperative and well groomed Resp Respiratory exam: Absent respiratory distress Abdominal Abdominal exam: Present soft and incision (c/d/i, no erythema, no fluctuance or tenderness); Absent distention or tenderness Results Pathology of appendix: acute appendicitis Assessment & Plan Diagnosis / Problem List (1) Acute appendicitis: Status: Acute Assessment & Plan: 33F s/p lap appendectomy 01/14/24, recovering well. I advised pt to avoid strenuous activity including lifting objects >10lbs for 6 weeks, all questions were answered and pt expressed understanding Plan: Follow up as needed Office Procedures GNS Level of Care Nursing/Assessment Patient Status: Established Patient Nursing Assessment/Reassesment: Medication Reconciliation, Update PMH in EMR and Vital Signs Coordination of Care: Complex Care and Chronic Disease 1-5, Education Complex Pt/Fam, Results/Orders obtained and Staff clarify orders Established Patient Charge Established Patient Point Assignment: 90 Established Patient Point Charge: EP Level 3 (80-115) Patient Portal Questionaires Social History Living Situation History Housing: House Housing Other:: Pt from home Tobacco History Smoking Status: Former smoker Alcohol History Alcohol Intake: Never Alcohol Intake Frequency: holidays/special occasions only Alcohol Intake Frequency Other:: Rare Domestic Abuse History Do You Feel Safe at Home: Yes Review of Systems Report any current symptoms Only answer those that you have currently: Past Medical History Past Medical History Have you ever been diagnosed with any of the following: Neurological Problems Seizures: No Cardiology Problems Congestive Heart Failure: No Respiratory Problems Chronic Obstructive Pulmonary Disease (COPD): No Stomache/Intestinal Problems Hepatitis: No Colorectal Cancer: No Genital/Urinary Problems Renal Disease: No Reproductive Problems Breast Cancer: No Previous Pregnancies: Yes Musculoskeletal Problems Bone Cancer: No Endocrine Problems Diabetes Mellitus Type 1: No Diabetes Mellitus Type 2: Yes (Patient on ozempic.) Other Problems Hospitalization: Yes Down Syndrome: No Developmental Delay: No Shingles: No Falls: No Blood Transfusions: No Blood Transfusion Reaction: No Anesthesia Reactions: No Organ Transplant: No Chemotherapy: No Radiation Therapy: No Hyperbaric Therapy: No MRSA: No VRSA: No Vancomycin-Resistant Enterococci: No Human Immunodeficiency Virus (HIV): No Chicken Pox: No Measles: No Mumps: No Rubella (Taiwanese Measles): No Pertussis: No Clostridium Difficile: No Cancer: No Cervical Cancer: No Lung Cancer: No Ovarian Cancer: No
== END 2024-01-30 14:44 | disposition home or self-care (01) ==
LOC: HODSRG 14:04
PROVIDERS: PCP Family Medicine; Referring Provider Family Medicine; Supervising Provider Surgery; Visit Provider Surgery
DX: Z48.815 Encounter for surgical aftercare following surgery on the digestive system (principal)
CPT/HCPCS: 99213; G0463

== ENCOUNTER 2024-09-17 09:33 | Emergency (ER) | payer MEDICAID, SELFPAY ==
[2024-09-17 09:39] VITALS: PULSE 94; RESP 24; O2SAT 98; BMI 43.0
[2024-09-17 09:46] VITALS: BP 128/81; PULSE 84; RESP 22; TEMP 37.3; O2SAT 100
--- NOTE | 2024-09-17 10:05 | EKG_ITS ---
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
--- NOTE | 2024-09-17 10:08 | PD.EDANX ---
ED Anxiety RME/HPI General Chief Complaint: Anxiety Stated Complaint: ANXIETY Time Seen by Provider: 09/17/24 09:40 Arrival date/time: 09/17/24 09:33 RME / HPI RME / HPI narrative: DR. SUNSHINE MAIN ED EVALUATION: 34-year-old female with history of anxiety and prior appendectomy [facility] with complaints of shortness of breath and anxiety. O2 saturation was 100% on room air. Patient also reports her stools were pink and mucusy . She is currently going through a divorce and endorses emotional distress. She is prescribed Wegovy but has not taken it in a long time. No allergies reported. She drinks socially and smokes THC. Related Data Home Medications ?Medication ?Instructions ?Recorded ?Confirmed semaglutide 1 mg/dose (4 mg/3 mL) 1 mg subcut QWEEK 01/30/24 01/30/24 subcutaneous pen injector (Ozempic) Previous Rx's ?Medication ?Instructions ?Recorded albuterol sulfate 90 mcg/actuation 2 puff inhalation Q6H PRN 04/25/22 aerosol inhaler (Ventolin HFA) shortness of breath or wheezing #8.5 grams Allergies Allergy/AdvReac Type Severity Reaction Status Date / Time No Known Allergies Allergy Verified 09/17/24 09:46 Review of Systems Review of Systems Systems Reviewed: All systems reviewed, normal except as documented Past Medical History Past Medical History REPRODUCTIVE: Positive Previous Pregnancies ENDOCRINE: Positive Endocrine Disorders and Diabetes Mellitus Type 2 (Patient on ozempic.) PSYCHO/SOCIAL: Positive Anxiety OTHER HISTORY: Positive Hospitalization Family History FAMILY HISTORY: Positive Family Cancer Social History SMOKING STATUS: Never smoker SECOND HAND EXPOSURE: No SUBSTANCE USE: marijuana ALCOHOL: Current ED Exam Narrative Physical exam: GENERAL APPEARANCE: alert and oriented x 4, well-developed, well-nourished, appears anxious, hyperventilating, tearful VITALS: All vitals were reviewed and the pulse ox is 100% on room air, which is normal according to my interpretation. HEENT: Normocephalic, atraumatic; pupils equal, round, reactive to light; EOMI; mucous membranes pink, moist; oropharynx clear NECK: Supple LUNGS: CTABL; no wheezes, no rales, no rhonchi HEART: Regular rate, regular rhythm; normal S1, S2; no murmurs ABDOMEN: non distended; normal BS; soft, no tenderness, no guarding, no rebound; no masses, no organomegaly, no hernia BACK: no CVA tenderness EXTREMITIES: atraumatic; no edema NEUROLOGIC: awake; alert and oriented x4; cranial nerves II-XII grossly intact; no focal sensory or motor deficits PSYCHIATRIC: anxious SKIN: warm, dry, normal color; no rashes Course Quality Measures none Orders Category Date Time Status Cylinder Inspector NOW Care 09/17/24 10:05 Active EKG (ED ONLY) *Do not use* NOW Care 09/17/24 10:05 Active EKG (ED Only) Stat Exams 09/17/24 10:05 Ordered Alcohol, Blood Medical Stat Lab 09/17/24 10:05 Ordered B-Type Natriuretic Peptide Stat Lab 09/17/24 10:05 Ordered CBC Stat Lab 09/17/24 10:05 Ordered Comprehensive Metabolic Panel Stat Lab 09/17/24 10:05 Ordered Drug Screen,Urine Stat Lab 09/17/24 10:06 Ordered Lipase Stat Lab 09/17/24 10:05 Ordered Magnesium Stat Lab 09/17/24 10:05 Ordered Troponin I Stat Lab 09/17/24 10:05 Ordered clonazePAM [KlonoPIN] Med 09/17/24 10:05 Discontinued 0.5 mg PO X1 ONE Reevaluation(s) Reevaluation #1: Patient feels better and wants to go home. Time: 11:38 Vital Signs Vital signs: Vital Signs Temperature 99.2 F 09/17/24 09:46 Pulse Rate 84 09/17/24 09:46 Respiratory Rate 22 H 09/17/24 09:46 Blood Pressure 128/81 09/17/24 09:46 Pulse Oximetry (%) 100 09/17/24 09:46 Oxygen Delivery Method Room Air 09/17/24 09:46 Anxiety MDM Narrative MDM Narrative: Jolanta Monroe am scribing for and in the presence of Dr. Sunshine. Patient data External records reviewed:: [facility] previous records and EMS form Clinical information provided by:: patient and EMS Social determinants that could affect healthcare access:: other (specify) (She drinks socially and smokes THC.) Patient has the following chronic illnesses:: Anxiety and prior appendectomy. She is prescribed Wegovy but has not taken it in a long time. No allergies reported. How is presenting disease/condition affected by chronic disease/condition?: exacerbated by Evaluation data The following diagnostics were reviewed and interpreted by me:: lab results and EKG tracing(s) Lab and/or radiology exams considered but not ordered:: none Interpretation Summary: My interpretation: EKG performed at 1019 hours, sinus rhythm, rate 70, no acute ischemic changes Medications / Prescriptions Medications or Prescriptions considered but not ordered:: none Medication administrations:: Medication Administration History Discontinued Medications Clonazepam (Clonazepam 0.5 Mg Tablet) 0.5 mg PO X1 ONE Stop: 09/17/24 10:06 Consultations Consultation(s) initiated? (list below): No Diagnosis Differential diagnosis anxiety: panic disorder, acute anxiety and other (anxiety-induced hyperventilation, reactive airway disease, bronchitis, pulmonary embolism) Most likely diagnosis given after review of the tests above:: Acute anxiety Panic attack Admission Indicated Admission indicated?: not indicated Admission Request Was there a request for admission?: No Disposition Plan Disposition Plan: Discharge Discharge Attestation Discharge Attestation: The patient and all family members were given an opportunity to ask questions and understood the discharge instructions. Discharge instructions specifically effects, indications for sooner follow up or return to the emergency department, and the expected course of current diagnosis. Patient condition: Stable Discharge Plan Plan Patient Disposition: HOME (Self Care) Prescriptions/Referrals Prescriptions/Med Rec: No Action Ozempic 1 mg/dose (4 mg/3 mL) pen injector 1 mg subcut QWEEK albuterol sulfate [Ventolin HFA] 90 mcg/actuation HFA aerosol inhaler 2 puff inhalation Q6H PRN (Reason: shortness of breath or wheezing) Qty: 8.5 0RF Referrals: German Montano MD [Primary Care Provider] - In 1 week Problem List Clinical Impression: Acute anxiety, Panic attack Patient/Caregiver Discharge Instructions Education Materials: ED Anxiety Reaction, ED Panic Attack Print Language: [place] Stand Alone Forms: Janet Award Info., Patient Portal Info Letter
[2024-09-17 10:25] VITALS: PULSE 70
[2024-09-17 10:28] VITALS: BP 120/86; PULSE 70; RESP 16; TEMP 36.9; O2SAT 95
[2024-09-17 10:48] LABS: Basophils # (Auto) 0.0 Thou/mm3 (0.0-0.2); Basophils % (Auto) 0 % (0-2.5); Eosinophils # (Auto) 0.0 Thou/mm3 (0.0-0.5); Eosinophils % (Auto) 0 % (0-10); Hematocrit 38.5 % (36.0-46.0); Hemoglobin 12.5 g/dL (12.0-16.0); Immature Granulocytes Auto 0.03 Thou/mm3 (0.00-0.00); Lymphocytes # (Auto) 1.8 Thou/mm3 (1.0-4.8); Lymphocytes % (Auto) 22 % (10-50); Mean Corpuscular HGB Conc 32.5 g/dl (31.0-37.0); Mean Corpuscular Hemoglobin 24.2 pg (25.0-35.0); Mean Corpuscular Volume 75 fL (80-100); Monocytes # (Auto) 0.4 Thou/mm3 (0.0-0.8); Monocytes % (Auto) 5 % (0-12); Neutrophils # (Auto) 5.9 Thou/mm3 (1.8-7.7); Neutrophils % (Auto) 72 % (37-80); Nucleated Red Blood Cell # 0.00 Thou/mm3 (0.00-0.00); Nucleated Red Blood Cell % 0 /100 WBC (0); Platelet Count 310 Thou/mm3 (140-440); RDW Standard Deviation 38.9 fL (36.4-46.3); Red Blood Count 5.16 Miln/mm3 (4.00-5.20); White Blood Count 8.1 Thou/mm3 (3.6-11.0)
[2024-09-17 10:59] LABS: B-Type Natriuretic Peptide < 20 pg/mL (0-100)
[2024-09-17 11:00] LABS: Alanine Aminotransferase 27 U/L (10-49); Albumin, Serum 4.5 gm/dL (3.5-5.0); Albumin/Globulin Ratio 1.9 (1.2-2.2); Alcohol, Blood Medical < 10.0 mg/dL (0-10.0); Alkaline Phosphatase 88 U/L (46-116); Anion Gap 11 (7-16); Aspartate Amino Transferase 23 U/L (0-34); BUN/Creatinine Ratio 14 Ratio (12-20); Bilirubin,Total 0.6 mg/dL (0.3-1.2); Blood Urea Nitrogen 10 mg/dL (9-23); Calcium 9.1 mg/dL (8.3-10.6); Calcium (Corrected) 9.1 mg/dL (8.5-10.1); Carbon Dioxide 23.5 mMol/L (20.0-31.0); Chloride 106 mMol/L (98-107); Creatinine (Component) 0.7 mg/dL (0.6-1.3); Estimated Creatinine Clearance 132.4 mL/min (>60); Globulin 2.4 gm/dL (2.3-3.5); Glucose 125 mg/dL (74-106); Lipase 36 U/L (12-53); Magnesium 1.6 mg/dL (1.6-2.6); Osmolality,Calculated 279 (275-295); Potassium 3.6 mMol/L (3.4-5.1); Sodium 140 mMol/L (136-145); Total Protein 6.9 gm/dL (5.7-8.2); Troponin I < 0.002 ng/mL (0.0-0.045); eGFR > 60 See Note
[2024-09-17 11:50] VITALS: BP 140/69; PULSE 81; RESP 16; TEMP 36.7; O2SAT 99
== END 2024-09-17 11:50 | disposition home or self-care (01) ==
PROVIDERS: Emergency Provider Emergency Medicine; PCP Family Medicine
DX: F41.0 Panic disorder [episodic paroxysmal anxiety] (principal); Z63.5 Disruption of family by separation and divorce; R06.02 Shortness of breath
CPT/HCPCS: 36415; 80053; 80307; 80320; 83690; 83735; 83880; 84484; 85025; 93005; 99283; A9270; G0480